=== PATIENT | male | born 1990 | race Caucasian/White ===

== ENCOUNTER 2016-11-10 14:57 | Emergency (ER) | payer BC ==
[~2016-11-10] VITALS: Ht 162.6 cm; Wt 68.0 kg
[2016-11-10 15:13] VITALS: BP 111/70
[2016-11-10] MEDS ORDERED: ONDANSETRON4 MG/5 M1 PO (16:28)
[2016-11-10] MEDS ORDERED: CHILDREN'S160 MG/56 ORAL (16:28)
[2016-11-10 16:37] LABS: BASOPHILS % (AUTO) 0.8 % (0.0-2.0); EOSINOPHILS % (AUTO) 0.1 % (0.0-3.0); MEAN CORPUSCULAR HGB CONC 34.1 G/DL (32.0-36.0); MEAN CORPUSCULAR VOLUME 100 FL (80-99); MEAN PLATELET VOLUME 7.5 FL (6.5-10.1); MONOCYTES % (AUTO) 5.8 % (1.0-10.0); NEUTROPHILS % (AUTO) 69.3 % (45.0-75.0); PLATELET COUNT 250 K/UL (150-450); RED BLOOD COUNT 4.49 M/UL (4.70-6.10); RED CELL DISTRIBUTION WIDTH 13.1 % (11.6-14.8); WHITE BLOOD COUNT 9.1 K/UL (4.8-10.8)
[2016-11-10 16:44] LABS: INR 0.9 (0.9-1.1); PROTHROMBIN TIME 9.9 SEC (9.30-11.50)
[2016-11-10 16:55] LABS: ALANINE AMINOTRANSFERASE 14 U/L (3-41); ALBUMIN/GLOBULIN RATIO 1.1 (1.0-2.7); ANION GAP 8 (5-15); ASPARTATE AMINO TRANSFERASE 20 U/L (5-40); CALCIUM 9.1 mg/dL (8.6-10.2); CARBON DIOXIDE 29 mEQ/L (20-30); CHLORIDE 102 mEQ/L (98-107); GLOMERULAR FILTRATION RATE > 60 mL/min (>60); HEMOLYSIS 5; LIPASE 21 U/L (< 60); POTASSIUM 4.2 mEQ/L (3.4-4.9); SODIUM 139 mEQ/L (135-145); TOTAL PROTEIN 7.5 g/dL (6.6-8.7)
[2016-11-10] MEDS ORDERED: ZOFRAN4 M3 ORAL (18:03)
[2016-11-10] MEDS ORDERED: TYLENOL EXTRA500 MG ORAL (18:03)
[2016-11-10 18:20] VITALS: BP 111/70
--- NOTE | 2016-11-10 21:07 | Emergency Room Report ---
History of Present Illness General Chief Complaint: Abdominal Pain Source: Family Member Present Illness HPI The patient is a 26-year-old male developmentally delayed presenting with both parents for right lower quadrant pain. The patient was seen by his primary doctor who told patient to come to the emergency department. The patient is unable to provide information at this time. The patient's parent's admit to vomiting today. The parents state that the patient has only been complaining of pain and denies any other symptoms for him including fever, chills, diarrhea, constipation Allergies: Coded Allergies: No Known Allergies (Unverified , 11/10/16) Patient History Past Medical History: see triage record Pertinent Family History: none Reviewed Nursing Documentation: PMH: Agreed, PSxH: Agreed Nursing Documentation-PMH Past Medical History: No History, Except For Review of Systems All Other Systems: negative except mentioned in HPI Physical Exam Vital Signs Date Time Temp Pulse Resp B/P (MAP) Pulse Ox O2 Delivery O2 Flow Rate FiO2 11/10/16 15:03 98.1 89 16 111/70 100 Room Air Sp02 EP Interpretation: reviewed, normal General Appearance: no apparent distress, alert, GCS 15, non-toxic Head: normocephalic, atraumatic Eyes: bilateral eye normal inspection, bilateral eye PERRL ENT: hearing grossly normal, normal pharynx, no angioedema, normal voice Neck: full range of motion, supple/symm/no masses Respiratory: chest non-tender, lungs clear, normal breath sounds, speaking full sentences Gastrointestinal: normal inspection, normal bowel sounds, soft, non-distended, no guarding, no rebound Genitourinary: normal inspection, no CVA tenderness Musculoskeletal: back normal, gait/station normal, normal range of motion Neurologic: alert, responsive, sensory intact Psychiatric: normal inspection Skin: normal color, no rash, warm/dry, well hydrated Medical Decision Making PA Attestation Dr. Hernandez is my supervising physician. Patient management was discussed with my supervising physician Diagnostic Impression: Primary Impression: Abdominal pain Qualified Codes: R10.9 - Unspecified abdominal pain Additional Impression: Colitis ER Course The patient is a 26-year-old male developmentally delayed presenting with both parents for right lower quadrant pain Differential diagnoses considered include but not limited to pancreatitis, appendicitis, UTI, gastroenteritis, among others PE: afebrile. NAD Abdomen is soft. Nondistended. Normal bowel sounds. Patient nonverbal but does not express pain with palpation. No guarding Labs unremarkable. CT scan shows signs consistent with colitis. The parents were given laboratory results as well as CT scan on the disc. They will followup with primary doctor as discussed. Dr. Ramirez was informed of findings over phone. The patient will be discharged home with prescription for Zofran and Tylenol. ER precautions given. Laboratory Tests Test 11/10/16 15:59 White Blood Count 9.1 K/UL (4.8-10.8) Red Blood Count 4.49 M/UL (4.70-6.10) L Hemoglobin 15.3 G/DL (14.2-18.0) Hematocrit 44.8 % (42.0-52.0) Mean Corpuscular Volume 100 FL (80-99) H Mean Corpuscular Hemoglobin 34.0 PG (27.0-31.0) H Mean Corpuscular Hemoglobin Concent 34.1 G/DL (32.0-36.0) Red Cell Distribution Width 13.1 % (11.6-14.8) Platelet Count 250 K/UL (150-450) Mean Platelet Volume 7.5 FL (6.5-10.1) Neutrophils (%) (Auto) 69.3 % (45.0-75.0) Lymphocytes (%) (Auto) 24.0 % (20.0-45.0) Monocytes (%) (Auto) 5.8 % (1.0-10.0) Eosinophils (%) (Auto) 0.1 % (0.0-3.0) Basophils (%) (Auto) 0.8 % (0.0-2.0) Prothrombin Time 9.9 SEC (9.30-11.50) Prothrombin Time INR 0.9 (0.9-1.1) PTT 26 SEC (23-33) Sodium Level 139 mEQ/L (135-145) Potassium Level 4.2 mEQ/L (3.4-4.9) Chloride Level 102 mEQ/L (98-107) Carbon Dioxide Level 29 mEQ/L (20-30) Anion Gap 8 (5-15) Blood Urea Nitrogen 13 mg/dL (7-23) Creatinine 1.0 mg/dL (0.7-1.2) Estimate Glomerular Filtration Rate > 60 mL/min (>60) Glucose Level 106 mg/dL (74-106) Calcium Level 9.1 mg/dL (8.6-10.2) Total Bilirubin 0.6 mg/dL (0.0-1.2) Aspartate Amino Transferase (AST) 20 U/L (5-40) Alanine Aminotransferase (ALT) 14 U/L (3-41) Alkaline Phosphatase 78 U/L (40-129) Total Protein 7.5 g/dL (6.6-8.7) Albumin 4.0 g/dL (3.5-5.2) Globulin 3.5 g/dL Albumin/Globulin Ratio 1.1 (1.0-2.7) Lipase 21 U/L (< 60) Lab Results Impression Unremarkable CT/MRI/US Diagnostic Results CT/MRI/US Diagnostic Results : Imaging Test Ordered: CT abd/pelvis Impression No signs of appendicitis seen. Evidence of colitis seen. Last Vital Signs Date Time Temp Pulse Resp B/P (MAP) Pulse Ox O2 Delivery O2 Flow Rate FiO2 11/10/16 18:20 98.1 16 111/70 100 Room Air 11/10/16 15:03 89 Status: improved Disposition: HOME, SELF-CARE Condition: Improved Scripts Ondansetron* (ZOFRAN*) 4 Mg Tablet 4 MG ORAL Q6H Y for Nausea & Vomiting, #20 TAB Prov: BRIANNA NOYOLA 11/10/16 Acetaminophen* (TYLENOL EXTRA STRENGTH*) 500 Mg Tablet 500 MG ORAL Q8H Y for Prn Headache/Temp > 101, #30 TAB 0 Refills Prov: BRIANNA NOYOLA 11/10/16 Referrals: NON PHYSICIAN (PCP) Patient Instructions: Viral Gastroenteritis, Adult, Food Choices to Help Relieve Diarrhea, Adult, Abdominal Pain, Adult Additional Instructions: I discussed my findings with the patient's parents. All questions and concerns have been answered. Treatment and medication compliance have been addressed. I advised the patient that they need to follow up with medical staff physician as soon as possible. Return to ED if symptoms worsen, new symptoms arise, or if needed for any reason. Patient verbalized understanding of discharge instructions. BRIANNA NOYOLA Nov 10, 2016 21:07
--- NOTE | 2016-11-13 07:58 | Diagnostic Imaging Report ---
Clinical Indication: Right lower quadrant pain, nausea, vomiting Technique: No oral contrast utilized, per emergency room physician request IV administration nonionic contrast. Venous phase spiral acquisition obtained through the abdomen and pelvis. Multiplanar reconstructions were generated. Total dose length product and 73 mGycm. CTDIvol(s) 16 mGy. Dose reduction achieved using automated exposure control Comparison: None Findings: The appendix is normal. There is equivocal wall thickening of portions of the transverse and descending colon, most likely artifact of under distention There is no evidence of diverticulosis or diverticulitis. Small bowel loops are normal caliber, slightly fluid filled distally. Distal esophagus, stomach, duodenum are unremarkable. No free or loculated intraperitoneal air or fluid is evident. Small fat-containing umbilical hernia noted. The gallbladder equivocally contains small stones. The liver, bile ducts, pancreas, spleen, adrenals, kidneys are unremarkable. No mesenteric or retroperitoneal mass or adenopathy. No pelvic mass or adenopathy. The included lung bases are clear. The bones are unremarkable. A small cyst and calcification are seen within or adjacent to the prostate Impression: Possible wall thickening of the colon, as described, more likely an artifact of under distention than real. Correlate with clinical findings No acute abnormality otherwise Possible cholelithiasis. Incidental finding of small cyst within the prostate, small fat-containing umbilical hernia This agrees with the preliminary interpretation provided overnight by Dr. Carrington The CT scanner at [facility] is accredited by the [employer] and the scans are performed using protocols designed to limit radiation exposure to as low as reasonably achievable to attain images of sufficient resolution adequate for diagnostic evaluation.
== END 2016-11-10 18:40 | disposition home or self-care (01) ==
LOC: EMR 18:40
DX: K52.9 Noninfective gastroenteritis and colitis, unspecified (principal)
CPT/HCPCS: 36415; 74177; 80053; 83690; 85025; 85610; 85730; 96374; 99284; J2405; Q9967